=== PATIENT | female | born 1970 | race Caucasian/White ===

== ENCOUNTER 2024-08-09 08:03 | Outpatient (CLI) | payer OTHER, SELFPAY ==
--- NOTE | ~2024-08-09 | MMUS_ITS ---
EXAMINATION: MM diag susan implant RT w [facility], US breast RT complete HISTORY: Follow-up right breast asymmetry TECHNIQUE: Additional 3-D tomosynthesis images of the right breast were performed and synthetic 2-D i mages were generated. CAD analysis was submitted and interpreted. High resolution complete right [facility] st ultrasound was performed. COMPARISON: Mammogram dated 06/27/ BREAST PARENCHYMAL COMPOSITION: Not dense: There are scattered areas of fibroglandular density. FINDINGS: MAMMOGRAPHIC FINDINGS: No discrete mass, suspicious calcifications or architectural distortion are identified. ULTRASOUND: Complete US of all 4 quadrants of the right breast/s and retroareolar region was reviewed. At 12:00, 4.5 cm from the nipple there is a oval circumscribed parallel oriented hypoechoic mass measuring 4 x 2 x 5 mm without internal vascularity or posterior features. At 3:00, 7 cm from the nipple there is a n oval hypoechoic parallel oriented circumscribed mass measuring 4 mm without internal vascularity or posterior features. At 10:00, 5.5 cm from the nipple there is an oval circumscribed parallel oriente d hypoechoic 6 mm mass without posterior features or internal vascularity, likely benign. IMPRESSION: 1. Probable benign right breast masses by ultrasound. No definite mammographic correlate. 2. Recommend 6 month follow-up Limited right breast ultrasound BI-RADS category 3, probably benign findings. Reviewed, dictated and finalized at location A. IMPRESSION: 1. Probable benign right breast masses by ultrasound. No definite mammographic correlate. 2. Recommend 6 month follow-up Limited right breast ultrasound BI-RADS category 3, probably benign findings.
== END 2024-08-09 08:04 | disposition home or self-care (01) ==
LOC: MICIMG 08:04
PROVIDERS: PCP Obstetrics & Gynecology; Visit Provider Obstetrics & Gynecology
DX: R92.8 Other abnormal and inconclusive findings on diagnostic imaging of breast (principal)
CPT/HCPCS: 76641; 77061; 77065; G0279